=== PATIENT | male | born 1970 | race Caucasian/White ===

== ENCOUNTER 2021-03-08 13:44 | Outpatient (REF) | payer MEDICARE, SELFPAY ==
[2021-03-08 15:22] LABS: COVID-19 Test Negative (Negative); IDNOW Serial# 16C4AD1C
== END 2021-03-08 13:45 | disposition home or self-care (01) ==
LOC: HO.LAB 13:44
PROVIDERS: Visit Provider Internal Medicine
DX: Z20.822 Contact with and (suspected) exposure to COVID-19 (principal)
CPT/HCPCS: 36415; 87635; C9803

== ENCOUNTER 2021-03-11 10:42 | Outpatient (REF) | payer MEDICARE, SELFPAY ==
[2021-03-11 12:03] LABS: COVID-19 Test Negative (Negative)
== END 2021-03-11 10:43 | disposition home or self-care (01) ==
LOC: HO.LAB 10:42
PROVIDERS: Visit Provider Internal Medicine
DX: Z20.822 Contact with and (suspected) exposure to COVID-19 (principal)
CPT/HCPCS: 36415; 87635; C9803

== ENCOUNTER 2024-08-02 08:08 | Outpatient (AMB) | payer OTHER, SELFPAY ==
--- OUTSIDE RECORDS SUMMARY | 2024-08-02 08:12 | XMS_ITS | Clinical Summary ---
Author Organization [facility] Address [address] [place], [place] [id number] Care Team Providers Care Miter Sawyer Name Role Phone Rolando Ewing MD Primary Care Provider + [phone] Medications No known medications Social History Tobacco Use Types Packs/Day Years Used Date Smoking Tobacco: Never Assessed Sex and Gender Information Value Date Recorded Sex Assigned at Not on file Gender Identity Not on file Sexual Orientation Not on file Job Start Date Occupation Industry Not on file Not on file Not on file Plan of Treatment Health Maintenance Due Date Last Done Comments Hepatitis B Vaccines (1 of 3 - 3-dose series) 1971 Hepatitis C Screening 1971 Depression Screening 1983 Preventative Health Evaluation 1989 Colon Cancer Screening (Colonoscopy) 2016 Shingrix-Zoster Vaccine (2 of 2) 03/03/2022 01/06/2022 COVID-19 Vaccine ( season) 2023 12/20/2021, 03/30/2021, 04/09/2020, Additional history exists Influenza Vaccine (#1) 2023 3, 01/24/2021, 01/16/2020, Additional history exists DTap / Tdap / Td (2 - Td or Tdap) 08/25/2024 08/25/2014 Pneumococcal Vaccine Aged Out No long er eligible based on patient's age to complete this topic RSV Ped < 20 months Aged Out No longe r eligible based on patient's age to complete this topic Care Teams Miter Sawyer Relationship Specialty Start Date End Date Rolando Ewing MD [address] [place] [id number] PCP - General Internal Medicine 03/11/23
--- NOTE | 2024-08-02 08:18 | A.OFFVIS_ITS ---
Intake Visit Reasons: Vasectomy Consult Intake Note: New Patient presents for initial visit for vasectomy consult Children#2; Expected# 0 Urology Medications: none Blood Thinner: aspirin Cab Starter Required: No Accompanied by: Self / Same As Patient Allergies No Known Allergies Allergy (Verified 08/02/24 09:25) Medication List - Last Reviewed 08/02/24 by Andrew Robledo aspirin 81 mg PO DAILY diazepam (Valium) 2 mg PO DAILY tramadol 50 mg PO Q8H PRN HPI Comments Details: Is a very pleasant 54-year-old male patient. He presents to the office today for: - vasectomy evaluation Vasectomy evaluation The patient presents for vasectomy consultation.? 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 Vasectomy as intended as a permanent form of control. Printed information and literature was provided to the patient. Overall there is a one in 2500 failure rate. This can occur at any time after vasectomy. Risks were discussed highlighting hematoma, spermatocele, epididymal congestion, development of sperm antibodies, and development of chronic pain estimated between 1-5%. The procedure was reviewed in detail. Anatomical diagrams of the male genitalia were used to explain the location of the vas deferens. The vas deferens will be transected, the proximal end will be cauterized, a metal clip would be applied to separate the 2 vas deferens ends. It was explained the procedure will be done in the office and takes approximately 10-15 minutes. Less common problems that arise with vasectomy include hematoma, bleeding, allergic reaction to anesthetic, epididymal infection, epididymal congestion, scrotal discomfort, spermatic leak, spermatic granuloma and the possibility of antisperm antibodies. He understands these risks and wishes to proceed. Consent was signed at the office today. He also understands that it takes 12 weeks for sperm to fully clear the system. He will need to provide a semen sample at 12 weeks and if this is not clear a 2nd sample at 16 weeks. Medical clearance to stop using protection will only be provided if he satisfies published criteria for sperm clearance. [facility] Medical History (Updated 08/02/24 @ 09:27 by Andrew Robledo) Testicular torsion Surgical History (Updated 08/02/24 @ 09:27 by Andrew Robledo) History of appendectomy Status post orchiopexy Review of Systems Const All systems reviewed & are unremarkable except as noted in HPI and below Physical Exam Const General: cooperative, healthy appearing, comfortable, no acute distress, well developed, alert and awake Nutritional Appearance: average body habitus Orientation/consciousness: patient oriented x3 Limitations: no limitations HEENT Head: Yes normal to inspection, Yes normocephalic and Yes atraumatic Ears: hearing grossly normal bilaterally Eyes General: appearance normal, both eyes and all related structures Neck Neck: Yes normal visual inspection and Yes trachea midline Chest Chest palpation & inspection: normal inspection of the chest Resp Effort & Inspection: normal respiratory effort and able to speak in complete sentences Cardio Rate: regular rate GI Inspection: Yes normal to inspection General: Yes no CVA tenderness Meatus: meatus normal Scrotum: scrotum normal Testes: testicular atrophy (right side) and other Back/Spine/Pelvis Back: no CVA tenderness Skin General skin exam: no rashes or lesions noted Neuro General: patient oriented x3 Extrem General: Yes normal to inspection Psych Appearance: grossly normal and well kempt Mental Status: mental status grossly normal Speech and movement: Normal speech and movement present and Clear speech present Affect: normal affect Attitude: cooperative Thought process: Normal thought process present Thought content: Normal thought content present Insight: Fair insight present (Psych) Judgement: Fair judgement present (Psych) Assessment & Plan Assessment & Plan (1) Anxiety about health: Code(s): R45.89 - Other symptoms and signs involving emotional state Category: Medical (2) Vasectomy evaluation: Code(s): Z30.09 - Encounter for other general counseling and advice on contraception Category: Medical Plan We discussed vasectomy; risks and benefits; as noted above. Consent obtained. All questions were answered. We discussed in office semen analysis verses fellows kit. Prescriptions provided; we discussed importance of bringing medications to office day of procedure. Will schedule for in office vasectomy Follow-up per doctor's orders; or sooner with any issues, concerns, and or questions. Medications: New tramadol Bringing medication to office day of procedure 50 mg PO Q8H PRN 7 tabs 0RF pain N43.3 - Hydrocele, unspecified diazepam (Valium) Bringing medication to office day of procedure 2 mg PO DAILY 2 tabs 0RF anxiety R45.89 - Other symptoms and signs involving emotional state Patient Instructions: The patient had an opportunity to ask questions regarding the treatment plan. All questions were answered. Physical exam, labs, and imaging were discussed and reviewed in detail. As well as risks, benefits, and discussion of treatment choices. No major barriers to understanding were identified. The patient expressed understanding and agreement with the above treatment plan. The patient was made aware they should contact our office by phone for worsening of their current condition, the appearance of new symptoms, or with any questions or concerns. Compliance is encouraged with any medications and follow up testing that is ordered. It is a privilege to be allowed the opportunity to participate in? your urological care.? Again, if you have any questions or concerns If you have any questions or concerns please do not hesitate to contact me. The office is [phone]. This note is constructed using voice recognition software. While every effort has been made to ensure accuracy supervisor laboratory errors may have been included. Yours sincerely, LOLITA Noe Coding Level of Care Code New Pt Level 4 (80161) Diagnoses Anxiety about health R45.89 Vasectomy evaluation Z30.09
== END 2024-08-02 09:11 | disposition home or self-care (01) ==
LOC: HO.HUSH 08:09
PROVIDERS: Visit Provider Nurse Practitioner Family
DX: R45.89 Other symptoms and signs involving emotional state (principal); Z30.09 Encounter for other general counseling and advice on contraception
CPT/HCPCS: 99204